=== PATIENT | male | born 1950 | race Caucasian/White ===

== ENCOUNTER 2019-05-27 19:01 | Inpatient (IN) | payer OTHER ==
[~2019-05-27] VITALS: Ht 162.6 cm; Wt 57.1 kg
[~2019-05-27 19:01] MED LIST: AMLO-147 PO; CARV25TA79 PO; CYCL10TA7 PO; HYDR-4011 PO; LEVO125T7 PO; OMEP20CA16 PO; SVL800C PO
[2019-05-27 21:16] VITALS: Ht 162.6 cm; Wt 57.1 kg
[2019-05-27 21:21] VITALS: BP 147/73; PULSE 80; RESP 20
[2019-05-27] MEDS ORDERED: ONDANSETRON 4 MG INJ IV PRN (22:30)
[2019-05-27] MEDS ORDERED: morphine 2 MG INJ IV ONE (22:30)
[2019-05-27] MEDS ORDERED: ALBUTEROL/IPRATROPIUM (NEB) 3 ML AMP HHN PRN (22:30)
[2019-05-27] MEDS ORDERED: ACETAMINOPHEN 325 MG TAB PO PRN (22:30)
[2019-05-27] MEDS ORDERED: HYDROCODONE/APAP (5/325) TAB PO PRN ×2 (22:30)
[2019-05-27] MEDS ORDERED: NACL 0.9% 3 ML SYG IV SCH (22:30)
[2019-05-27] MEDS ORDERED: CYCLOBENZAPRINE 10 MG TAB PO PRN (23:00)
[2019-05-27] MEDS ORDERED: VANCOMYCIN IV PER PHARMACY XX SCH (23:00)
[2019-05-27] MEDS ORDERED: PIPER-TAZO 3.375 GM IV (PMX) 100 ML IVPB SCH (23:00)
[2019-05-27] MEDS: PIPER-TAZO 2.25 GM (PMX) 50 ML IVPB SCH (23:23)
[2019-05-28] VITALS (20 sets, daily range): BP systolic 113–151; BP diastolic 65–80; PULSE 70–84; RESP 16–22
[2019-05-28] MEDS ORDERED: PIPER-TAZO 3.375 GM IV (PMX) 100 ML IVPB SCH
[2019-05-28] MEDS ORDERED: VANCOMYCIN 1 GM 250 ML IVPB ONE
[2019-05-28] MEDS ORDERED: SODIUM CHLORIDE 0.9% 1L BAG IV PRN (01:30)
[2019-05-28] MEDS ORDERED: HEPARIN 1000 UNITS/ML 10 ML INJ CATHETER SCH (01:30)
[2019-05-28] MEDS: PIPER-TAZO 2.25 GM (PMX) 50 ML IVPB SCH ×3 (05:14→21:40)
[2019-05-28] MEDS: PANTOPRAZOLE (EC) 40 MG TAB PO SCH (05:14)
[2019-05-28] MEDS: SEVELAMER CARBONATE 800 MG TABLET PO SCH ×3 (08:45→17:55)
[2019-05-28] MEDS: AMLODIPINE 10 MG TAB PO SCH (08:46)
[2019-05-28] MEDS: HEPARIN 5,000 UNIT/1 ML VIAL SC SCH ×2 (08:52→21:53)
[2019-05-28] MEDS ORDERED: NON-FORMULARY/PATIENT OWN MED (Omeprazole* 20 MG) PO SCH (09:00)
[2019-05-28] MEDS: METHOCARBAMOL 500 MG TAB PO SCH ×2 (14:07→21:39)
[2019-05-28] MEDS: morphine 2 MG INJ IV PRN (16:35)
[2019-05-28] MEDS: GABAPENTIN 100 MG CAP PO SCH (21:39)
[2019-05-28] MEDS: OXYCODONE/ACETAMINOPHEN (10/325) TAB PO PRN (21:40)
[2019-05-29] VITALS (7 sets, daily range): BP systolic 117–137; BP diastolic 58–70; PULSE 66–83; RESP 19–20
[2019-05-29] MEDS: OXYCODONE/ACETAMINOPHEN (10/325) TAB PO PRN ×3 (06:32→22:09)
[2019-05-29] MEDS: PANTOPRAZOLE (EC) 40 MG TAB PO SCH (06:32)
[2019-05-29] MEDS: PIPER-TAZO 2.25 GM (PMX) 50 ML IVPB SCH ×2 (06:32→13:03)
[2019-05-29] MEDS: GABAPENTIN 100 MG CAP PO SCH ×2 (08:46→20:42)
[2019-05-29] MEDS: SEVELAMER CARBONATE 800 MG TABLET PO SCH ×3 (08:46→17:12)
[2019-05-29] MEDS: METHOCARBAMOL 500 MG TAB PO SCH (08:46)
[2019-05-29] MEDS: AMLODIPINE 10 MG TAB PO SCH (08:47)
[2019-05-29] MEDS: HEPARIN 5,000 UNIT/1 ML VIAL SC SCH ×2 (08:54→20:44)
[2019-05-29] MEDS: POLYETHYLENE GLYCOL 17 GM PACKET PO SCH (13:30)
[2019-05-29] MEDS ORDERED: CEFTRIAXONE 1 GM/50 ML (PMX) 50 ML IVPB SCH (16:00)
[2019-05-29] MEDS: morphine 2 MG INJ IV PRN (19:35)
[2019-05-29] MEDS: DOCUSATE SODIUM 100 MG CAP PO SCH (20:42)
[2019-05-30] VITALS (20 sets, daily range): BP systolic 122–152; BP diastolic 67–80; PULSE 74–82; RESP 16–20
[2019-05-30] MEDS: PANTOPRAZOLE (EC) 40 MG TAB PO SCH (06:05)
[2019-05-30] MEDS: morphine 2 MG INJ IV PRN ×3 (06:19→23:55)
[2019-05-30] MEDS: SEVELAMER CARBONATE 800 MG TABLET PO SCH ×3 (07:55→17:36)
[2019-05-30] MEDS: GABAPENTIN 100 MG CAP PO SCH ×2 (08:14→20:49)
[2019-05-30] MEDS: DOCUSATE SODIUM 100 MG CAP PO SCH ×2 (08:14→20:49)
[2019-05-30] MEDS: POLYETHYLENE GLYCOL 17 GM PACKET PO SCH (08:17)
[2019-05-30] MEDS: AMLODIPINE 10 MG TAB PO SCH (08:21)
[2019-05-30] MEDS: HEPARIN 5,000 UNIT/1 ML VIAL SC SCH ×2 (08:21→20:59)
[2019-05-30] MEDS ORDERED: VANCOMYCIN 1 GM 250 ML IVPB SCH (10:00)
[2019-05-30] MEDS: LIDOCAINE 1% (MDV) 20 ML INJ INJ PRN (10:12)
[2019-05-30] MEDS: OXYCODONE/ACETAMINOPHEN (10/325) TAB PO PRN (13:47)
[2019-05-30] MEDS: CEFTRIAXONE 1 GM/50 ML (PMX) 50 ML IVPB SCH ×2 (13:50→20:49)
[2019-05-31] VITALS (28 sets, daily range): BP systolic 124–174; BP diastolic 61–88; PULSE 80–97; RESP 15–20
[2019-05-31] MEDS ORDERED: SODIUM CHLORIDE 0.9% 1L BAG IV PRN (01:30)
[2019-05-31] MEDS: PANTOPRAZOLE (EC) 40 MG TAB PO SCH (05:16)
[2019-05-31] MEDS: morphine 2 MG INJ IV PRN ×2 (06:43→10:20)
[2019-05-31] MEDS: SEVELAMER CARBONATE 800 MG TABLET PO SCH ×3 (08:00→17:43)
[2019-05-31] MEDS: DOCUSATE SODIUM 100 MG CAP PO SCH ×2 (09:00→23:01)
[2019-05-31] MEDS: GABAPENTIN 100 MG CAP PO SCH ×2 (09:00→23:01)
[2019-05-31] MEDS: HEPARIN 5,000 UNIT/1 ML VIAL SC SCH ×2 (09:00→23:02)
[2019-05-31] MEDS: AMLODIPINE 10 MG TAB PO SCH (09:00)
[2019-05-31] MEDS: CEFTRIAXONE 1 GM/50 ML (PMX) 50 ML IVPB SCH ×2 (09:20→23:03)
[2019-05-31] MEDS ORDERED: IODIXANOL LOCM 100 ML BTL ONE (09:55)
[2019-05-31] MEDS ORDERED: SOD CHLORIDE 0.9% 100 ML ONE (09:55)
[2019-05-31] MEDS ORDERED: OXYCODONE/ACETAMINOPHEN (5/325) TAB PO PRN ×2 (14:00)
[2019-05-31] MEDS ORDERED: ONDANSETRON 4 MG INJ IV PRN (14:00)
[2019-05-31] MEDS ORDERED: HYDROmorphONE 1 MG/5 ML IV SYRINGE IV PRN ×3 (14:00)
[2019-05-31] MEDS ORDERED: PROPOFOL 20 ML ONE (14:12)
[2019-05-31] MEDS ORDERED: FENTAnyl 50 MCG/ML VIAL ONE (14:12)
[2019-05-31] MEDS ORDERED: LIDOCAINE 1% (MDV) 20 ML INJ ONE (14:26)
[2019-05-31] MEDS: POLYETHYLENE GLYCOL 17 GM PACKET PO SCH (17:40)
[2019-05-31] MEDS: SOD FERRIC GLUC COMPLX 125 MG in SOD CHLORIDE 0.9% 100 ML IVPB SCH (17:40)
[2019-05-31] MEDS: morphine 4 MG/ML VIAL IV PRN ×2 (17:56→23:03)
[2019-05-31] MEDS: LIDOCAINE 1% (MDV) 20 ML INJ INJ PRN (20:09)
[2019-06-01] VITALS (18 sets, daily range): BP systolic 121–162; BP diastolic 66–83; PULSE 74–90; RESP 16–18
[2019-06-01] MEDS: morphine 4 MG/ML VIAL IV PRN ×4 (03:27→22:13)
[2019-06-01] MEDS: PANTOPRAZOLE (EC) 40 MG TAB PO SCH (06:00)
[2019-06-01] MEDS: SEVELAMER CARBONATE 800 MG TABLET PO SCH ×4 (08:00→18:00)
[2019-06-01] MEDS: HEPARIN 5,000 UNIT/1 ML VIAL SC SCH ×2 (08:04→22:06)
[2019-06-01] MEDS: DOCUSATE SODIUM 100 MG CAP PO SCH ×2 (08:37→22:02)
[2019-06-01] MEDS: GABAPENTIN 100 MG CAP PO SCH ×2 (08:37→22:03)
[2019-06-01] MEDS: POLYETHYLENE GLYCOL 17 GM PACKET PO SCH (08:37)
[2019-06-01] MEDS: CEFTRIAXONE 1 GM/50 ML (PMX) 50 ML IVPB SCH ×2 (08:38→22:03)
[2019-06-01] MEDS: AMLODIPINE 10 MG TAB PO SCH (08:38)
[2019-06-01] MEDS: HYDROCODONE/APAP (7.5/325) TAB PO PRN (08:51)
[2019-06-01] MEDS: SOD FERRIC GLUC COMPLX 125 MG in SOD CHLORIDE 0.9% 100 ML IVPB SCH (12:49)
[2019-06-01] MEDS ORDERED: SOD FERRIC GLUC COMPLX 125 MG in SOD CHLORIDE 0.9% 100 ML IVPB SCH (13:00)
[2019-06-01] MEDS ORDERED: LIDOCAINE 1% (MPF) 5 ML VIAL ONE (14:13)
[2019-06-01] MEDS: LIDOCAINE 1% (MDV) 20 ML INJ INJ PRN (17:23)
[2019-06-02 01:37] VITALS: BP 140/63; PULSE 78; RESP 18
[2019-06-02] MEDS: morphine 4 MG/ML VIAL IV PRN ×3 (04:46→20:18)
[2019-06-02] MEDS: PANTOPRAZOLE (EC) 40 MG TAB PO SCH (05:44)
[2019-06-02 08:03] VITALS: BP 174/81; PULSE 80; RESP 18
[2019-06-02] MEDS: CEFTRIAXONE 1 GM/50 ML (PMX) 50 ML IVPB SCH ×2 (08:25→20:17)
[2019-06-02] MEDS: HYDROCODONE/APAP (7.5/325) TAB PO PRN (08:25)
[2019-06-02] MEDS: SEVELAMER CARBONATE 800 MG TABLET PO SCH ×3 (08:26→17:52)
[2019-06-02] MEDS: GABAPENTIN 100 MG CAP PO SCH (08:28)
[2019-06-02] MEDS: AMLODIPINE 10 MG TAB PO SCH (08:28)
[2019-06-02] MEDS: DOCUSATE SODIUM 100 MG CAP PO SCH ×2 (08:28→20:17)
[2019-06-02] MEDS: POLYETHYLENE GLYCOL 17 GM PACKET PO SCH (08:29)
[2019-06-02] MEDS: HEPARIN 5,000 UNIT/1 ML VIAL SC SCH ×2 (08:45→20:28)
[2019-06-02] MEDS ORDERED: VANCOMYCIN 1 GM 250 ML IVPB SCH (10:30)
[2019-06-02] MEDS: SOD FERRIC GLUC COMPLX 125 MG in SOD CHLORIDE 0.9% 100 ML IVPB SCH (14:30)
[2019-06-02 14:33] VITALS: BP 156/73; PULSE 80; RESP 16
[2019-06-02] MEDS: DICLOFENAC SODIUM 1% GEL 100 GM TUBE TP SCH ×2 (17:00→20:18)
[2019-06-02 19:44] VITALS: BP 160/76; PULSE 84; RESP 17
[2019-06-02] MEDS: PREGABALIN 75 MG CAP PO SCH (20:17)
[2019-06-03] VITALS (19 sets, daily range): BP systolic 144–199; BP diastolic 74–102; PULSE 77–96; RESP 15–18
[2019-06-03] MEDS: PANTOPRAZOLE (EC) 40 MG TAB PO SCH (05:56)
[2019-06-03] MEDS: morphine 4 MG/ML VIAL IV PRN ×3 (06:50→21:55)
[2019-06-03] MEDS: PREGABALIN 75 MG CAP PO SCH ×2 (08:46→21:22)
[2019-06-03] MEDS: SEVELAMER CARBONATE 800 MG TABLET PO SCH ×3 (08:47→18:00)
[2019-06-03] MEDS: HYDROCODONE/APAP (7.5/325) TAB PO PRN ×2 (08:47→19:11)
[2019-06-03] MEDS: POLYETHYLENE GLYCOL 17 GM PACKET PO SCH (08:47)
[2019-06-03] MEDS: DOCUSATE SODIUM 100 MG CAP PO SCH ×2 (08:47→21:22)
[2019-06-03] MEDS: CEFTRIAXONE 1 GM/50 ML (PMX) 50 ML IVPB SCH ×2 (08:48→21:20)
[2019-06-03] MEDS: HEPARIN 5,000 UNIT/1 ML VIAL SC SCH ×2 (08:50→21:34)
[2019-06-03] MEDS: AMLODIPINE 10 MG TAB PO SCH ×2 (09:00→15:36)
[2019-06-03] MEDS: DICLOFENAC SODIUM 1% GEL 100 GM TUBE TP SCH ×4 (13:00→21:23)
[2019-06-03] MEDS: SOD FERRIC GLUC COMPLX 125 MG in SOD CHLORIDE 0.9% 100 ML IVPB SCH (15:35)
[2019-06-03] MEDS: CELECOXIB 100 MG CAP PO SCH (21:22)
[2019-06-03] MEDS: LOSARTAN 25 MG TAB PO SCH (21:22)
[2019-06-04 02:00] VITALS: BP 146/67; PULSE 81; RESP 17
[2019-06-04] MEDS: PANTOPRAZOLE (EC) 40 MG TAB PO SCH (06:30)
[2019-06-04 07:31] VITALS: BP 137/73; PULSE 74; RESP 18
[2019-06-04] MEDS: SEVELAMER CARBONATE 800 MG TABLET PO SCH ×3 (08:51→18:00)
[2019-06-04] MEDS: DOCUSATE SODIUM 100 MG CAP PO SCH ×2 (08:52→21:44)
[2019-06-04] MEDS: CELECOXIB 100 MG CAP PO SCH ×2 (08:53→21:43)
[2019-06-04] MEDS: PREGABALIN 75 MG CAP PO SCH ×2 (08:53→21:47)
[2019-06-04] MEDS: DICLOFENAC SODIUM 1% GEL 100 GM TUBE TP SCH ×4 (08:54→23:02)
[2019-06-04] MEDS: POLYETHYLENE GLYCOL 17 GM PACKET PO SCH (08:54)
[2019-06-04] MEDS: CEFTRIAXONE 1 GM/50 ML (PMX) 50 ML IVPB SCH ×2 (08:54→20:28)
[2019-06-04] MEDS: LOSARTAN 25 MG TAB PO SCH ×2 (08:54→21:45)
[2019-06-04] MEDS: HYDROCODONE/APAP (7.5/325) TAB PO PRN ×2 (08:55→21:47)
[2019-06-04] MEDS ORDERED: AMLODIPINE 5 MG TAB PO SCH (09:00)
[2019-06-04] MEDS: HEPARIN 5,000 UNIT/1 ML VIAL SC SCH ×2 (09:03→21:51)
[2019-06-04] MEDS: SOD FERRIC GLUC COMPLX 125 MG in SOD CHLORIDE 0.9% 100 ML IVPB SCH (12:47)
[2019-06-04] MEDS ORDERED: VANCOMYCIN 1 GM 250 ML IVPB ONE (13:00)
[2019-06-04] MEDS: morphine 4 MG/ML VIAL IV PRN (14:15)
[2019-06-04 14:45] VITALS: BP 121/60; PULSE 71; RESP 17
[2019-06-04 20:48] VITALS: BP 140/67; PULSE 77; RESP 17
[2019-06-05 02:06] VITALS: BP 130/66; PULSE 71; RESP 18
[2019-06-05] MEDS: PANTOPRAZOLE (EC) 40 MG TAB PO SCH (05:38)
[2019-06-05 07:29] VITALS: BP 145/75; PULSE 71; RESP 17
[2019-06-05] MEDS: CEFTRIAXONE 1 GM/50 ML (PMX) 50 ML IVPB SCH ×2 (08:11→20:41)
[2019-06-05] MEDS: SEVELAMER CARBONATE 800 MG TABLET PO SCH ×3 (08:11→17:27)
[2019-06-05] MEDS: POLYETHYLENE GLYCOL 17 GM PACKET PO SCH (08:11)
[2019-06-05] MEDS: DOCUSATE SODIUM 100 MG CAP PO SCH ×2 (08:11→20:42)
[2019-06-05] MEDS: PREGABALIN 75 MG CAP PO SCH ×2 (08:12→20:43)
[2019-06-05] MEDS: LOSARTAN 25 MG TAB PO SCH ×2 (08:12→20:41)
[2019-06-05] MEDS: CELECOXIB 100 MG CAP PO SCH ×2 (08:12→20:41)
[2019-06-05] MEDS: AMLODIPINE 5 MG TAB PO SCH (08:13)
[2019-06-05] MEDS: DICLOFENAC SODIUM 1% GEL 100 GM TUBE TP SCH ×4 (08:14→20:43)
[2019-06-05] MEDS: HEPARIN 5,000 UNIT/1 ML VIAL SC SCH ×2 (08:15→20:45)
[2019-06-05] MEDS: HYDROCODONE/APAP (7.5/325) TAB PO PRN ×2 (08:28→15:52)
[2019-06-05] MEDS: traMADol 50 MG TAB PO SCH ×2 (12:10→20:43)
[2019-06-05] MEDS: metroNIDAZOLE 500 MG/NS (PMX) 100 ML IVPB SCH ×2 (14:37→22:04)
[2019-06-05 14:50] VITALS: BP 138/71; PULSE 74; RESP 18
[2019-06-05 21:14] VITALS: BP 159/78; PULSE 80; RESP 18
[2019-06-06] VITALS (18 sets, daily range): BP systolic 101–162; BP diastolic 60–75; PULSE 76–91; RESP 17–18
[2019-06-06] MEDS: metroNIDAZOLE 500 MG/NS (PMX) 100 ML IVPB SCH (05:31)
[2019-06-06] MEDS: PANTOPRAZOLE (EC) 40 MG TAB PO SCH (05:31)
[2019-06-06] MEDS: CELECOXIB 100 MG CAP PO SCH ×2 (08:41→21:21)
[2019-06-06] MEDS: CEFTRIAXONE 1 GM/50 ML (PMX) 50 ML IVPB SCH (08:41)
[2019-06-06] MEDS: DOCUSATE SODIUM 100 MG CAP PO SCH ×2 (08:41→21:21)
[2019-06-06] MEDS: traMADol 50 MG TAB PO SCH ×3 (08:41→21:21)
[2019-06-06] MEDS: PREGABALIN 75 MG CAP PO SCH ×2 (08:41→21:22)
[2019-06-06] MEDS: SEVELAMER CARBONATE 800 MG TABLET PO SCH ×3 (08:42→17:36)
[2019-06-06] MEDS: POLYETHYLENE GLYCOL 17 GM PACKET PO SCH (08:42)
[2019-06-06] MEDS: HEPARIN 5,000 UNIT/1 ML VIAL SC SCH (08:43)
[2019-06-06] MEDS: DICLOFENAC SODIUM 1% GEL 100 GM TUBE TP SCH ×4 (08:44→21:27)
[2019-06-06] MEDS: LOSARTAN 25 MG TAB PO SCH ×2 (08:48→21:23)
[2019-06-06] MEDS: AMLODIPINE 5 MG TAB PO SCH (08:49)
[2019-06-06] MEDS ORDERED: MEROPENEM 1 GM/50ML(PMX) 50 ML IVPB ONE (09:30)
[2019-06-06] MEDS: LIDOCAINE 1% (MDV) 20 ML INJ INJ PRN (09:44)
[2019-06-06] MEDS ORDERED: MEROPENEM 500MG/50 ML (PMX) 50 ML IVPB SCH (10:00)
[2019-06-06] MEDS: RIFAMPIN 300 MG CAP PO SCH (10:00)
[2019-06-06] MEDS ORDERED: LORAZEPAM 2 MG INJ IV SCH (13:00)
[2019-06-06] MEDS: HYDROCODONE/APAP (7.5/325) TAB PO PRN (16:00)
[2019-06-06] MEDS: morphine 4 MG/ML VIAL IV PRN (20:06)
[2019-06-06] MEDS: MEROPENEM 500MG/50 ML (PMX) 50 ML IVPB SCH (21:21)
[2019-06-07 01:20] VITALS: BP 138/65; PULSE 83; RESP 18
[2019-06-07] MEDS: PANTOPRAZOLE (EC) 40 MG TAB PO SCH (05:44)
[2019-06-07 07:48] VITALS: BP 134/64; PULSE 80; RESP 17
[2019-06-07] MEDS: PREGABALIN 75 MG CAP PO SCH ×2 (08:41→20:30)
[2019-06-07] MEDS: traMADol 50 MG TAB PO SCH ×2 (08:41→20:32)
[2019-06-07] MEDS: POLYETHYLENE GLYCOL 17 GM PACKET PO SCH (09:17)
[2019-06-07] MEDS: RIFAMPIN 300 MG CAP PO SCH (09:18)
[2019-06-07] MEDS: SEVELAMER CARBONATE 800 MG TABLET PO SCH ×3 (09:18→18:58)
[2019-06-07] MEDS: MEROPENEM 500MG/50 ML (PMX) 50 ML IVPB SCH ×2 (09:18→20:36)
[2019-06-07] MEDS: AMLODIPINE 5 MG TAB PO SCH (09:19)
[2019-06-07] MEDS: DOCUSATE SODIUM 100 MG CAP PO SCH ×2 (09:19→20:29)
[2019-06-07] MEDS: CELECOXIB 100 MG CAP PO SCH ×2 (09:19→20:43)
[2019-06-07] MEDS: LOSARTAN 25 MG TAB PO SCH ×2 (09:19→20:32)
[2019-06-07] MEDS: DICLOFENAC SODIUM 1% GEL 100 GM TUBE TP SCH ×4 (09:20→21:36)
[2019-06-07] MEDS ORDERED: SOD CHLORIDE 0.9% 250 ML IV* ONE (10:52)
[2019-06-07] MEDS: HYDROCODONE/APAP (7.5/325) TAB PO PRN ×2 (10:59→22:56)
[2019-06-07] MEDS ORDERED: VANCOMYCIN 750 MG (PMX) 250 ML IVPB SCH (14:00)
[2019-06-07 14:38] VITALS: BP 122/62; PULSE 83; RESP 16
[2019-06-07 19:27] VITALS: BP 134/65; PULSE 78; RESP 18
[2019-06-08] VITALS (20 sets, daily range): BP systolic 126–168; BP diastolic 62–84; PULSE 76–88; RESP 13–20
[2019-06-08] MEDS: PANTOPRAZOLE (EC) 40 MG TAB PO SCH (05:15)
[2019-06-08] MEDS: morphine 4 MG/ML VIAL IV PRN ×2 (05:15→09:39)
[2019-06-08] MEDS: SEVELAMER CARBONATE 800 MG TABLET PO SCH ×3 (08:00→18:00)
[2019-06-08] MEDS: LOSARTAN 25 MG TAB PO SCH ×2 (08:06→22:30)
[2019-06-08] MEDS: DOCUSATE SODIUM 100 MG CAP PO SCH ×2 (08:06→22:30)
[2019-06-08] MEDS: CELECOXIB 100 MG CAP PO SCH ×2 (08:06→22:30)
[2019-06-08] MEDS: PREGABALIN 75 MG CAP PO SCH ×2 (08:07→22:30)
[2019-06-08] MEDS: RIFAMPIN 300 MG CAP PO SCH (08:07)
[2019-06-08] MEDS: traMADol 50 MG TAB PO SCH ×2 (08:07→22:30)
[2019-06-08] MEDS: AMLODIPINE 5 MG TAB PO SCH (08:07)
[2019-06-08] MEDS: POLYETHYLENE GLYCOL 17 GM PACKET PO SCH (08:07)
[2019-06-08] MEDS: MEROPENEM 500MG/50 ML (PMX) 50 ML IVPB SCH ×2 (09:38→22:30)
[2019-06-08] MEDS: DICLOFENAC SODIUM 1% GEL 100 GM TUBE TP SCH ×4 (09:39→22:30)
[2019-06-08] MEDS ORDERED: SOD CHLORIDE 0.9% 250 ML IV* ONE (12:13)
[2019-06-08] MEDS ORDERED: POLYMYXIN/BACITRACIN 1L IRRIG ONE (14:06)
[2019-06-08] MEDS ORDERED: BUPIVACAINE 0.5%/EPI (SDV) 30 ML INJ ONE (14:06)
[2019-06-08] MEDS ORDERED: LIDOCAINE 0.5% (SDV) 50 ML INJ ONE (14:06)
[2019-06-08] MEDS ORDERED: GELATIN SIZE 100 SPONGE ONE (14:06)
[2019-06-08] MEDS ORDERED: THROMBIN 5000 UNIT (RECOTHROM) VIAL ONE (14:06)
[2019-06-08] MEDS ORDERED: PROPOFOL 20 ML ONE (14:19)
[2019-06-08] MEDS ORDERED: LIDOCAINE 2% (SDV) 5 ML INJ ONE (14:22)
[2019-06-08] MEDS ORDERED: ROCURONIUM 50 MG INJ ONE ×2 (18:32→18:33)
[2019-06-08] MEDS ORDERED: DEXAMETHASONE 4 MG/ML 5 ML INJ ONE (18:33)
[2019-06-08] MEDS ORDERED: ONDANSETRON 4 MG INJ ONE (18:34)
[2019-06-08] MEDS ORDERED: SUGAMMADEX SODIUM 200 MG/2 ML VIAL IV ONE (18:35)
[2019-06-08] MEDS ORDERED: MEPERIDINE 25 MG INJ IV PRN (19:00)
[2019-06-08] MEDS ORDERED: hydrALAzine 20 MG INJ IV PRN (19:00)
[2019-06-08] MEDS ORDERED: DIPHENHYDRAMINE 50 MG INJ IV PRN (19:00)
[2019-06-08] MEDS ORDERED: ALBUTEROL 0.083% (NEB) 2.5 MG/3 ML AMP HHN PRN (19:00)
[2019-06-08] MEDS ORDERED: HYDROCODONE/APAP (5/325) TAB PO PRN (19:00)
[2019-06-08] MEDS ORDERED: ONDANSETRON 4 MG INJ IV PRN (19:00)
[2019-06-08] MEDS ORDERED: HYDROmorphONE 1 MG/5 ML IV SYRINGE IV PRN ×3 (19:00)
[2019-06-08] MEDS ORDERED: LORAZEPAM 2 MG INJ IV PRN (19:00)
[2019-06-08] MEDS ORDERED: METOCLOPRAMIDE 10 MG INJ IV PRN (19:00)
[2019-06-08] MEDS ORDERED: LABETALOL HCL 20MG INJ IV PRN (19:00)
[2019-06-08] MEDS ORDERED: MIDAZOLAM 1 MG/ML 2 ML INJ IV PRN (19:00)
[2019-06-08] MEDS ORDERED: EPHEDrine 25 MG/5 ML SYG IV PRN (19:00)
[2019-06-09] VITALS (17 sets, daily range): BP systolic 90–157; BP diastolic 50–78; PULSE 74–85; RESP 18–20
[2019-06-09] MEDS: HYDROCODONE/APAP (7.5/325) TAB PO PRN (00:51)
[2019-06-09] MEDS: LIDOCAINE 1% (MDV) 20 ML INJ INJ PRN (00:55)
[2019-06-09] MEDS: ALBUMIN HUMAN 25% 100 ML IV PRN (02:07)
[2019-06-09] MEDS: PANTOPRAZOLE (EC) 40 MG TAB PO SCH (05:10)
[2019-06-09] MEDS: MEROPENEM 500MG/50 ML (PMX) 50 ML IVPB SCH ×2 (05:11→20:52)
[2019-06-09] MEDS: morphine 4 MG/ML VIAL IV PRN ×2 (06:03→11:53)
[2019-06-09] MEDS: DICLOFENAC SODIUM 1% GEL 100 GM TUBE TP SCH ×4 (09:00→21:00)
[2019-06-09] MEDS: CELECOXIB 100 MG CAP PO SCH ×2 (09:16→20:51)
[2019-06-09] MEDS: DOCUSATE SODIUM 100 MG CAP PO SCH ×2 (09:17→21:00)
[2019-06-09] MEDS: SEVELAMER CARBONATE 800 MG TABLET PO SCH ×3 (09:18→18:00)
[2019-06-09] MEDS: POLYETHYLENE GLYCOL 17 GM PACKET PO SCH (09:18)
[2019-06-09] MEDS: PREGABALIN 75 MG CAP PO SCH ×2 (09:19→20:51)
[2019-06-09] MEDS: RIFAMPIN 300 MG CAP PO SCH (09:19)
[2019-06-09] MEDS: traMADol 50 MG TAB PO SCH (09:19)
[2019-06-09] MEDS: AMLODIPINE 5 MG TAB PO SCH ×2 (09:23→20:53)
[2019-06-09] MEDS: LOSARTAN 25 MG TAB PO SCH ×2 (09:24→20:53)
[2019-06-09] MEDS ORDERED: HYDROmorphONE 2 MG/ML SYG IV PRN (12:30)
[2019-06-09] MEDS ORDERED: IBUPROFEN 800 MG TAB PO SCH (15:00)
[2019-06-09] MEDS ORDERED: HYDROmorphONE 0.2 MG/ML PCA IV SCH (15:30)
[2019-06-09] MEDS ORDERED: NALOXONE (0.4 MG/ML) INJ IV PRN (15:30)
[2019-06-09] MEDS: HYDROCODONE/APAP (5/325) TAB PO SCH ×2 (18:38→22:39)
[2019-06-09] MEDS: CYCLOBENZAPRINE HCL 5 MG TABLET PO SCH (21:58)
[2019-06-10] VITALS (18 sets, daily range): BP systolic 117–155; BP diastolic 61–84; PULSE 70–79; RESP 16–20
[2019-06-10] MEDS: HYDROCODONE/APAP (5/325) TAB PO SCH ×7 (02:42→20:38)
[2019-06-10] MEDS: PANTOPRAZOLE (EC) 40 MG TAB PO SCH (06:48)
[2019-06-10] MEDS: MEROPENEM 500MG/50 ML (PMX) 50 ML IVPB SCH ×2 (09:17→23:27)
[2019-06-10] MEDS: POLYETHYLENE GLYCOL 17 GM PACKET PO SCH (09:18)
[2019-06-10] MEDS: RIFAMPIN 300 MG CAP PO SCH (09:19)
[2019-06-10] MEDS: PREGABALIN 75 MG CAP PO SCH ×2 (09:19→20:38)
[2019-06-10] MEDS: AMLODIPINE 5 MG TAB PO SCH ×2 (09:20→20:38)
[2019-06-10] MEDS: CELECOXIB 100 MG CAP PO SCH ×2 (09:20→20:38)
[2019-06-10] MEDS: LOSARTAN 25 MG TAB PO SCH ×2 (09:20→20:37)
[2019-06-10] MEDS: DOCUSATE SODIUM 100 MG CAP PO SCH ×2 (09:20→20:37)
[2019-06-10] MEDS: CYCLOBENZAPRINE HCL 5 MG TABLET PO SCH ×3 (09:20→20:38)
[2019-06-10] MEDS: DICLOFENAC SODIUM 1% GEL 100 GM TUBE TP SCH ×4 (09:21→20:44)
[2019-06-10] MEDS: SEVELAMER CARBONATE 800 MG TABLET PO SCH ×3 (09:25→19:17)
[2019-06-10] MEDS ORDERED: HYDROCODONE/APAP (5/325) TAB PO SCH (11:00)
[2019-06-10] MEDS: LIDOCAINE 1% (MDV) 20 ML INJ INJ PRN (16:43)
[2019-06-10] MEDS: VANCOMYCIN 750 MG (PMX) 250 ML IVPB SCH (21:24)
[2019-06-11] MEDS: HYDROCODONE/APAP (5/325) TAB PO SCH ×7 (01:32→23:05)
[2019-06-11 01:45] VITALS: BP 164/79; PULSE 77; RESP 19
[2019-06-11] MEDS: PANTOPRAZOLE (EC) 40 MG TAB PO SCH (06:03)
[2019-06-11 07:48] VITALS: BP 161/73; PULSE 69; RESP 20
[2019-06-11] MEDS: CELECOXIB 100 MG CAP PO SCH ×2 (08:31→20:41)
[2019-06-11] MEDS: MEROPENEM 500MG/50 ML (PMX) 50 ML IVPB SCH ×2 (08:31→20:39)
[2019-06-11] MEDS: CYCLOBENZAPRINE HCL 5 MG TABLET PO SCH ×3 (08:32→20:40)
[2019-06-11] MEDS: RIFAMPIN 300 MG CAP PO SCH (08:32)
[2019-06-11] MEDS: PREGABALIN 75 MG CAP PO SCH ×2 (08:32→20:40)
[2019-06-11] MEDS: DOCUSATE SODIUM 100 MG CAP PO SCH ×2 (08:32→20:40)
[2019-06-11] MEDS: AMLODIPINE 5 MG TAB PO SCH ×2 (08:32→20:41)
[2019-06-11] MEDS: LOSARTAN 25 MG TAB PO SCH ×2 (08:32→20:40)
[2019-06-11] MEDS: POLYETHYLENE GLYCOL 17 GM PACKET PO SCH (08:33)
[2019-06-11] MEDS: DICLOFENAC SODIUM 1% GEL 100 GM TUBE TP SCH ×4 (08:33→20:42)
[2019-06-11] MEDS: SEVELAMER CARBONATE 800 MG TABLET PO SCH ×3 (12:00→17:38)
[2019-06-11 13:14] VITALS: BP 165/76; PULSE 72; RESP 20
[2019-06-11] MEDS: morphine 2 MG INJ IV PRN (13:38)
[2019-06-11 19:45] VITALS: BP 138/69; PULSE 78; RESP 18
[2019-06-12 01:11] VITALS: BP 155/81; PULSE 78; RESP 18
[2019-06-12] MEDS: HYDROCODONE/APAP (5/325) TAB PO SCH ×2 (03:50→08:50)
[2019-06-12] MEDS: PANTOPRAZOLE (EC) 40 MG TAB PO SCH (05:43)
[2019-06-12 07:57] VITALS: BP 143/82; PULSE 66; RESP 20
[2019-06-12] MEDS ORDERED: LIDOCAINE 1% (MPF) 5 ML VIAL SC ONE (08:00)
[2019-06-12] MEDS: SEVELAMER CARBONATE 800 MG TABLET PO SCH ×3 (08:50→17:53)
[2019-06-12] MEDS: PREGABALIN 75 MG CAP PO SCH ×2 (08:51→20:09)
[2019-06-12] MEDS: RIFAMPIN 300 MG CAP PO SCH (08:51)
[2019-06-12] MEDS: MEROPENEM 500MG/50 ML (PMX) 50 ML IVPB SCH (08:51)
[2019-06-12] MEDS: CYCLOBENZAPRINE HCL 5 MG TABLET PO SCH ×3 (08:52→20:10)
[2019-06-12] MEDS: CELECOXIB 100 MG CAP PO SCH ×2 (08:52→20:09)
[2019-06-12] MEDS: DOCUSATE SODIUM 100 MG CAP PO SCH ×2 (08:52→20:09)
[2019-06-12] MEDS: LOSARTAN 25 MG TAB PO SCH ×2 (08:53→20:08)
[2019-06-12] MEDS: AMLODIPINE 5 MG TAB PO SCH ×2 (08:54→20:08)
[2019-06-12] MEDS: POLYETHYLENE GLYCOL 17 GM PACKET PO SCH (08:55)
[2019-06-12] MEDS: DICLOFENAC SODIUM 1% GEL 100 GM TUBE TP SCH ×4 (09:00→20:10)
[2019-06-12] MEDS ORDERED: OXYCODONE/ACETAMINOPHEN (5/325) TAB PO PRN (11:00)
[2019-06-12] MEDS: oxyCODONE (CR) 10 MG TAB [oxyCONTIN] PO SCH ×2 (11:45→20:10)
[2019-06-12] MEDS: morphine 2 MG INJ IV PRN (14:06)
[2019-06-12 15:19] VITALS: BP 134/71; PULSE 72; RESP 20
[2019-06-12 19:25] VITALS: BP 189/80; PULSE 73; RESP 17
[2019-06-12] MEDS: ERTAPENEM SODIUM 0.5 GM in SOD CHLORIDE 0.9% 100 ML IVPB SCH (20:04)
[2019-06-12 21:33] VITALS: BP 192/85; PULSE 76
[2019-06-13] VITALS (19 sets, daily range): BP systolic 93–187; BP diastolic 56–86; PULSE 73–86; RESP 16–20
[2019-06-13] MEDS: hydrALAzine 20 MG INJ IV PRN ×2 (01:17→14:48)
[2019-06-13] MEDS: PANTOPRAZOLE (EC) 40 MG TAB PO SCH (05:24)
[2019-06-13] MEDS: POLYETHYLENE GLYCOL 17 GM PACKET PO SCH (08:33)
[2019-06-13] MEDS: CYCLOBENZAPRINE HCL 5 MG TABLET PO SCH ×3 (08:33→23:45)
[2019-06-13] MEDS: RIFAMPIN 300 MG CAP PO SCH (08:33)
[2019-06-13] MEDS: SEVELAMER CARBONATE 800 MG TABLET PO SCH ×3 (08:33→18:18)
[2019-06-13] MEDS: CELECOXIB 100 MG CAP PO SCH ×2 (08:33→23:45)
[2019-06-13] MEDS: DOCUSATE SODIUM 100 MG CAP PO SCH ×2 (08:33→23:45)
[2019-06-13] MEDS: oxyCODONE (CR) 10 MG TAB [oxyCONTIN] PO SCH ×2 (08:34→23:45)
[2019-06-13] MEDS: AMLODIPINE 5 MG TAB PO SCH ×2 (08:34→23:49)
[2019-06-13] MEDS: PREGABALIN 75 MG CAP PO SCH ×2 (08:34→23:46)
[2019-06-13] MEDS: LOSARTAN 25 MG TAB PO SCH ×2 (08:35→23:49)
[2019-06-13] MEDS: DICLOFENAC SODIUM 1% GEL 100 GM TUBE TP SCH ×3 (08:35→17:00)
[2019-06-13] MEDS ORDERED: OXYCODONE/ACETAMINOPHEN (5/325) TAB PO PRN (14:30)
[2019-06-13] MEDS: VANCOMYCIN 750 MG (PMX) 250 ML IVPB SCH (18:18)
[2019-06-13] MEDS: LIDOCAINE 1% (MDV) 20 ML INJ INJ PRN (19:54)
[2019-06-14] MEDS: DICLOFENAC SODIUM 1% GEL 100 GM TUBE TP SCH ×5 (00:28→21:09)
[2019-06-14] MEDS: ERTAPENEM SODIUM 0.5 GM in SOD CHLORIDE 0.9% 100 ML IVPB SCH ×2 (00:28→21:17)
[2019-06-14 01:37] VITALS: BP 147/70; PULSE 80; RESP 20
[2019-06-14] MEDS: morphine 2 MG INJ IV PRN (03:18)
[2019-06-14] MEDS: PANTOPRAZOLE (EC) 40 MG TAB PO SCH (06:28)
[2019-06-14 08:10] VITALS: BP 177/74; PULSE 73; RESP 17
[2019-06-14] MEDS: SEVELAMER CARBONATE 800 MG TABLET PO SCH ×3 (08:30→17:50)
[2019-06-14] MEDS: CYCLOBENZAPRINE HCL 5 MG TABLET PO SCH ×3 (08:31→21:10)
[2019-06-14] MEDS: DOCUSATE SODIUM 100 MG CAP PO SCH ×2 (08:31→21:10)
[2019-06-14] MEDS: CELECOXIB 100 MG CAP PO SCH ×2 (08:31→21:12)
[2019-06-14] MEDS: oxyCODONE (CR) 10 MG TAB [oxyCONTIN] PO SCH ×2 (08:32→21:11)
[2019-06-14] MEDS: POLYETHYLENE GLYCOL 17 GM PACKET PO SCH (08:32)
[2019-06-14] MEDS: PREGABALIN 75 MG CAP PO SCH ×2 (08:32→21:10)
[2019-06-14] MEDS: LOSARTAN 25 MG TAB PO SCH ×2 (08:32→21:11)
[2019-06-14] MEDS: AMLODIPINE 5 MG TAB PO SCH ×2 (08:32→21:12)
[2019-06-14 10:18] VITALS: BP 157/74; PULSE 72; RESP 16
[2019-06-14 14:07] VITALS: BP 182/81; PULSE 82; RESP 17
[2019-06-14] MEDS: hydrALAzine 20 MG INJ IV PRN (14:17)
[2019-06-14 19:56] VITALS: BP 163/79; PULSE 81; RESP 18
[2019-06-14 22:00] VITALS: BP 157/73; PULSE 82; RESP 19
[2019-06-15] VITALS (19 sets, daily range): BP systolic 131–188; BP diastolic 51–86; PULSE 77–86; RESP 16–20
[2019-06-15] MEDS: PANTOPRAZOLE (EC) 40 MG TAB PO SCH (05:38)
[2019-06-15] MEDS: SEVELAMER CARBONATE 800 MG TABLET PO SCH ×4 (08:00→17:15)
[2019-06-15] MEDS: LOSARTAN 25 MG TAB PO SCH ×2 (09:00→20:07)
[2019-06-15] MEDS: POLYETHYLENE GLYCOL 17 GM PACKET PO SCH ×2 (09:00→09:41)
[2019-06-15] MEDS: AMLODIPINE 5 MG TAB PO SCH ×2 (09:00→20:08)
[2019-06-15] MEDS: CYCLOBENZAPRINE HCL 5 MG TABLET PO SCH ×3 (09:39→20:08)
[2019-06-15] MEDS: CELECOXIB 100 MG CAP PO SCH ×2 (09:39→20:06)
[2019-06-15] MEDS: PREGABALIN 75 MG CAP PO SCH ×2 (09:39→20:08)
[2019-06-15] MEDS: oxyCODONE (CR) 10 MG TAB [oxyCONTIN] PO SCH ×2 (09:40→20:08)
[2019-06-15] MEDS: DOCUSATE SODIUM 100 MG CAP PO SCH ×2 (09:41→20:07)
[2019-06-15] MEDS: DICLOFENAC SODIUM 1% GEL 100 GM TUBE TP SCH ×4 (09:41→22:10)
[2019-06-15] MEDS: LIDOCAINE 1% (MDV) 20 ML INJ INJ PRN (11:26)
[2019-06-15] MEDS: ASPIRIN (EC) 325 MG TAB PO SCH (15:52)
[2019-06-15] MEDS: hydrALAzine 20 MG INJ IV PRN (17:15)
[2019-06-15] MEDS: ERTAPENEM SODIUM 0.5 GM in SOD CHLORIDE 0.9% 100 ML IVPB SCH (22:10)
[2019-06-16] VITALS (7 sets, daily range): BP systolic 134–181; BP diastolic 70–86; PULSE 78–88; RESP 18–20
[2019-06-16] MEDS: PANTOPRAZOLE (EC) 40 MG TAB PO SCH (05:36)
[2019-06-16] MEDS: hydrALAzine 20 MG INJ IV PRN (05:46)
[2019-06-16] MEDS: SEVELAMER CARBONATE 800 MG TABLET PO SCH ×3 (08:00→17:08)
[2019-06-16] MEDS: LOSARTAN 25 MG TAB PO SCH ×2 (08:43→20:22)
[2019-06-16] MEDS: AMLODIPINE 5 MG TAB PO SCH ×2 (08:43→20:20)
[2019-06-16] MEDS: DICLOFENAC SODIUM 1% GEL 100 GM TUBE TP SCH ×4 (08:44→21:23)
[2019-06-16] MEDS: oxyCODONE (CR) 10 MG TAB [oxyCONTIN] PO SCH (08:44)
[2019-06-16] MEDS: POLYETHYLENE GLYCOL 17 GM PACKET PO SCH (08:44)
[2019-06-16] MEDS: PREGABALIN 75 MG CAP PO SCH ×2 (08:45→20:21)
[2019-06-16] MEDS: DOCUSATE SODIUM 100 MG CAP PO SCH ×2 (08:51→20:21)
[2019-06-16] MEDS: CELECOXIB 100 MG CAP PO SCH ×2 (08:51→20:20)
[2019-06-16] MEDS: CYCLOBENZAPRINE HCL 5 MG TABLET PO SCH (08:51)
[2019-06-16] MEDS: ASPIRIN (EC) 325 MG TAB PO SCH (08:51)
[2019-06-16] MEDS ORDERED: HALOPERIDOL 5 MG INJ IM ONE (12:30)
[2019-06-16] MEDS: VANCOMYCIN 750 MG (PMX) 250 ML IVPB SCH (18:32)
[2019-06-16] MEDS: ERTAPENEM SODIUM 0.5 GM in SOD CHLORIDE 0.9% 100 ML IVPB SCH (21:23)
[2019-06-16] MEDS: HEPARIN 5,000 UNIT/1 ML VIAL SC SCH (21:38)
[2019-06-17] VITALS (21 sets, daily range): BP systolic 105–212; BP diastolic 49–96; PULSE 67–90; RESP 18–20
[2019-06-17] MEDS: PANTOPRAZOLE (EC) 40 MG TAB PO SCH (05:55)
[2019-06-17] MEDS: CELECOXIB 100 MG CAP PO SCH ×2 (08:12→21:29)
[2019-06-17] MEDS: SEVELAMER CARBONATE 800 MG TABLET PO SCH ×3 (08:12→18:17)
[2019-06-17] MEDS: DOCUSATE SODIUM 100 MG CAP PO SCH ×2 (08:12→21:29)
[2019-06-17] MEDS: PREGABALIN 75 MG CAP PO SCH ×2 (08:12→21:38)
[2019-06-17] MEDS: POLYETHYLENE GLYCOL 17 GM PACKET PO SCH (08:13)
[2019-06-17] MEDS: HEPARIN 5,000 UNIT/1 ML VIAL SC SCH ×2 (08:23→21:32)
[2019-06-17] MEDS: DICLOFENAC SODIUM 1% GEL 100 GM TUBE TP SCH ×4 (08:28→21:39)
[2019-06-17] MEDS: LOSARTAN 25 MG TAB PO SCH ×3 (09:00→21:30)
[2019-06-17] MEDS: ASPIRIN (EC) 81 MG TAB PO SCH (09:00)
[2019-06-17] MEDS: DOXAZOSIN 1 MG TAB PO ONE (10:00)
[2019-06-17] MEDS ORDERED: LORAZEPAM 2 MG INJ IV ONE ×2 (10:00→23:17)
[2019-06-17] MEDS: CEFEPIME 1GM/50 ML (PMX) 50 ML IVPB SCH (11:13)
[2019-06-17] MEDS: hydrALAzine 20 MG INJ IV PRN (11:21)
[2019-06-17] MEDS: LIDOCAINE 1% (MDV) 20 ML INJ INJ PRN (14:36)
[2019-06-17] MEDS ORDERED: DOXAZOSIN 2 MG TAB PO SCH (21:00)
[2019-06-18] VITALS (9 sets, daily range): BP systolic 120–184; BP diastolic 56–84; PULSE 77–88; RESP 17–20
[2019-06-18] MEDS: PANTOPRAZOLE (EC) 40 MG TAB PO SCH (06:05)
[2019-06-18] MEDS: SEVELAMER CARBONATE 800 MG TABLET PO SCH ×4 (08:00→17:09)
[2019-06-18] MEDS: CEFEPIME 1GM/50 ML (PMX) 50 ML IVPB SCH (08:58)
[2019-06-18] MEDS: HEPARIN 5,000 UNIT/1 ML VIAL SC SCH ×2 (08:59→21:32)
[2019-06-18] MEDS: DOCUSATE SODIUM 100 MG CAP PO SCH ×3 (08:59→21:28)
[2019-06-18] MEDS: LOSARTAN 25 MG TAB PO SCH ×2 (09:00→21:29)
[2019-06-18] MEDS: ASPIRIN (EC) 81 MG TAB PO SCH ×2 (09:00→09:01)
[2019-06-18] MEDS: CELECOXIB 100 MG CAP PO SCH ×3 (09:00→21:28)
[2019-06-18] MEDS: POLYETHYLENE GLYCOL 17 GM PACKET PO SCH (09:00)
[2019-06-18] MEDS: PREGABALIN 75 MG CAP PO SCH ×2 (09:00→21:34)
[2019-06-18] MEDS: AMLODIPINE 5 MG TAB PO SCH ×2 (09:00→09:01)
[2019-06-18] MEDS: DICLOFENAC SODIUM 1% GEL 100 GM TUBE TP SCH ×4 (09:03→21:34)
[2019-06-18] MEDS: hydrALAzine 20 MG INJ IV PRN (16:04)
[2019-06-18] MEDS: DOXAZOSIN 2 MG TAB PO SCH (21:30)
[2019-06-19 04:00] VITALS: BP 155/69; PULSE 82; RESP 21
[2019-06-19] MEDS: PANTOPRAZOLE (EC) 40 MG TAB PO SCH (05:40)
[2019-06-19 07:10] VITALS: BP 181/84; PULSE 95; RESP 20
[2019-06-19] MEDS ORDERED: AMLODIPINE 2.5 MG TAB PO SCH (09:00)
[2019-06-19] MEDS: CEFEPIME 1GM/50 ML (PMX) 50 ML IVPB SCH (09:19)
[2019-06-19] MEDS: SEVELAMER CARBONATE 800 MG TABLET PO SCH ×3 (09:19→17:09)
[2019-06-19] MEDS: ASPIRIN (EC) 81 MG TAB PO SCH (09:20)
[2019-06-19] MEDS: LOSARTAN 25 MG TAB PO SCH ×2 (09:20→21:08)
[2019-06-19] MEDS: DOCUSATE SODIUM 100 MG CAP PO SCH ×2 (09:20→21:08)
[2019-06-19] MEDS: CELECOXIB 100 MG CAP PO SCH ×2 (09:21→21:07)
[2019-06-19] MEDS: DICLOFENAC SODIUM 1% GEL 100 GM TUBE TP SCH ×4 (09:21→21:09)
[2019-06-19] MEDS: POLYETHYLENE GLYCOL 17 GM PACKET PO SCH (09:21)
[2019-06-19] MEDS: HYDROCODONE/APAP (5/325) TAB PO PRN ×2 (10:49→19:00)
[2019-06-19] MEDS: PREGABALIN 75 MG CAP PO SCH ×2 (10:49→21:14)
[2019-06-19] MEDS: HEPARIN 5,000 UNIT/1 ML VIAL SC SCH ×2 (10:54→21:11)
[2019-06-19 12:00] VITALS: BP 165/77; PULSE 67; RESP 20
[2019-06-19 15:35] VITALS: BP 137/69; PULSE 75; RESP 20
[2019-06-19] MEDS: VANCOMYCIN 750 MG (PMX) 250 ML IVPB SCH (17:09)
[2019-06-19 19:57] VITALS: BP 196/81; PULSE 78; RESP 18
[2019-06-19] MEDS: DOXAZOSIN 2 MG TAB PO SCH (21:07)
[2019-06-19] MEDS: AMLODIPINE 2.5 MG TAB PO SCH (21:14)
[2019-06-20] VITALS (20 sets, daily range): BP systolic 136–210; BP diastolic 70–98; PULSE 72–92; RESP 18–20
[2019-06-20] MEDS: HYDROCODONE/APAP (5/325) TAB PO PRN (04:17)
[2019-06-20] MEDS: PANTOPRAZOLE (EC) 40 MG TAB PO SCH (06:37)
[2019-06-20] MEDS: DICLOFENAC SODIUM 1% GEL 100 GM TUBE TP SCH ×4 (09:31→23:12)
[2019-06-20] MEDS: CEFEPIME 1GM/50 ML (PMX) 50 ML IVPB SCH (09:32)
[2019-06-20] MEDS: DOCUSATE SODIUM 100 MG CAP PO SCH ×2 (09:32→20:31)
[2019-06-20] MEDS: CELECOXIB 100 MG CAP PO SCH ×2 (09:32→20:31)
[2019-06-20] MEDS: ASPIRIN (EC) 81 MG TAB PO SCH (09:32)
[2019-06-20] MEDS: AMLODIPINE 2.5 MG TAB PO SCH (09:32)
[2019-06-20] MEDS: LOSARTAN 25 MG TAB PO SCH ×2 (09:33→20:37)
[2019-06-20] MEDS: POLYETHYLENE GLYCOL 17 GM PACKET PO SCH (09:34)
[2019-06-20] MEDS: SEVELAMER CARBONATE 800 MG TABLET PO SCH ×3 (09:34→17:54)
[2019-06-20] MEDS: PREGABALIN 75 MG CAP PO SCH ×2 (09:37→20:45)
[2019-06-20] MEDS: HEPARIN 5,000 UNIT/1 ML VIAL SC SCH ×2 (09:56→20:57)
[2019-06-20] MEDS: FLUCONAZOLE 100 MG TAB PO SCH (17:54)
[2019-06-20] MEDS: DAPTOMYCIN 230 MG in SOD CHLORIDE 0.9% 100 ML IVPB SCH (18:13)
[2019-06-20] MEDS: AMLODIPINE 5 MG TAB PO SCH (20:31)
[2019-06-20] MEDS: DOXAZOSIN 2 MG TAB PO SCH (20:31)
[2019-06-21] VITALS (8 sets, daily range): BP systolic 121–193; BP diastolic 58–97; PULSE 76–87; RESP 18–20
[2019-06-21] MEDS ORDERED: HALOPERIDOL 5 MG INJ IM ONE (00:30)
[2019-06-21] MEDS ORDERED: hydrALAzine 20 MG INJ IV ONE (02:30)
[2019-06-21] MEDS: PANTOPRAZOLE (EC) 40 MG TAB PO SCH (05:25)
[2019-06-21] MEDS: DOCUSATE SODIUM 100 MG CAP PO SCH ×2 (09:30→22:13)
[2019-06-21] MEDS: CEFEPIME 1GM/50 ML (PMX) 50 ML IVPB SCH (09:30)
[2019-06-21] MEDS: FLUCONAZOLE 100 MG TAB PO SCH (09:30)
[2019-06-21] MEDS: PREGABALIN 75 MG CAP PO SCH ×2 (09:30→22:13)
[2019-06-21] MEDS: SEVELAMER CARBONATE 800 MG TABLET PO SCH ×3 (09:30→17:12)
[2019-06-21] MEDS: CELECOXIB 100 MG CAP PO SCH ×2 (09:30→22:13)
[2019-06-21] MEDS: ASPIRIN (EC) 81 MG TAB PO SCH (09:31)
[2019-06-21] MEDS: AMLODIPINE 5 MG TAB PO SCH (09:31)
[2019-06-21] MEDS: LOSARTAN 25 MG TAB PO SCH ×2 (09:31→22:14)
[2019-06-21] MEDS: HEPARIN 5,000 UNIT/1 ML VIAL SC SCH ×2 (09:59→22:24)
[2019-06-21] MEDS: DICLOFENAC SODIUM 1% GEL 100 GM TUBE TP SCH ×4 (09:59→22:15)
[2019-06-21] MEDS: POLYETHYLENE GLYCOL 17 GM PACKET PO SCH (10:00)
[2019-06-21] MEDS: POVIDONE IODINE 10% 28.4 GM OINT TOP SCH (10:00)
[2019-06-21] MEDS: HYDROCODONE/APAP (5/325) TAB PO PRN (13:22)
[2019-06-21] MEDS ORDERED: QUETIAPINE 25 MG TAB PO SCH (21:00)
[2019-06-21] MEDS: NIFEdipine (XL) 60 MG TAB PO SCH (22:13)
[2019-06-21] MEDS: DOXAZOSIN 2 MG TAB PO SCH (22:14)
[2019-06-22] VITALS (16 sets, daily range): BP systolic 105–164; BP diastolic 46–79; PULSE 77–101; RESP 18–20
[2019-06-22] MEDS ORDERED: LORAZEPAM 2 MG INJ IV ONE (02:26)
[2019-06-22] MEDS: PANTOPRAZOLE (EC) 40 MG TAB PO SCH (05:38)
[2019-06-22] MEDS ORDERED: SOD CHLORIDE 0.9% 250 ML IV* ONE (10:05)
[2019-06-22] MEDS: CEFEPIME 1GM/50 ML (PMX) 50 ML IVPB SCH (10:28)
[2019-06-22] MEDS: POLYETHYLENE GLYCOL 17 GM PACKET PO SCH (10:28)
[2019-06-22] MEDS: FLUCONAZOLE 100 MG TAB PO SCH (10:29)
[2019-06-22] MEDS: ASPIRIN (EC) 81 MG TAB PO SCH (10:29)
[2019-06-22] MEDS: CELECOXIB 100 MG CAP PO SCH ×2 (10:29→21:33)
[2019-06-22] MEDS: NIFEdipine (XL) 60 MG TAB PO SCH ×2 (10:29→21:35)
[2019-06-22] MEDS: DOCUSATE SODIUM 100 MG CAP PO SCH ×2 (10:30→21:34)
[2019-06-22] MEDS: LOSARTAN 25 MG TAB PO SCH ×2 (10:31→21:35)
[2019-06-22] MEDS: POVIDONE IODINE 10% 28.4 GM OINT TOP SCH (10:31)
[2019-06-22] MEDS: DICLOFENAC SODIUM 1% GEL 100 GM TUBE TP SCH ×4 (10:32→21:36)
[2019-06-22] MEDS: HEPARIN 5,000 UNIT/1 ML VIAL SC SCH ×2 (10:36→21:46)
[2019-06-22] MEDS: PREGABALIN 75 MG CAP PO SCH (10:46)
[2019-06-22] MEDS: SEVELAMER CARBONATE 800 MG TABLET PO SCH ×3 (10:46→18:22)
[2019-06-22] MEDS: DAPTOMYCIN 230 MG in SOD CHLORIDE 0.9% 100 ML IVPB SCH (18:21)
[2019-06-22] MEDS: DOXAZOSIN 2 MG TAB PO SCH (21:34)
[2019-06-22] MEDS: QUETIAPINE 25 MG TAB PO SCH (21:35)
[2019-06-22] MEDS ORDERED: HALOPERIDOL 5 MG INJ IM ONE (22:00)
[2019-06-23 00:20] VITALS: BP 141/67; PULSE 95; RESP 18
[2019-06-23 04:34] VITALS: BP 149/65; PULSE 90; RESP 18
[2019-06-23] MEDS: PANTOPRAZOLE (EC) 40 MG TAB PO SCH (05:50)
[2019-06-23 07:48] VITALS: BP 124/67; PULSE 88; RESP 19
[2019-06-23] MEDS: POVIDONE IODINE 10% 28.4 GM OINT TOP SCH (09:00)
[2019-06-23] MEDS: POLYETHYLENE GLYCOL 17 GM PACKET PO SCH (10:56)
[2019-06-23] MEDS: DICLOFENAC SODIUM 1% GEL 100 GM TUBE TP SCH ×4 (10:56→20:36)
[2019-06-23] MEDS: CEFEPIME 1GM/50 ML (PMX) 50 ML IVPB SCH (10:56)
[2019-06-23] MEDS: DOCUSATE SODIUM 100 MG CAP PO SCH ×2 (10:57→20:34)
[2019-06-23] MEDS: ASPIRIN (EC) 81 MG TAB PO SCH (10:57)
[2019-06-23] MEDS: LOSARTAN 25 MG TAB PO SCH ×2 (10:58→20:36)
[2019-06-23] MEDS: FLUCONAZOLE 100 MG TAB PO SCH (10:58)
[2019-06-23] MEDS: NIFEdipine (XL) 60 MG TAB PO SCH ×2 (10:58→20:35)
[2019-06-23] MEDS: CELECOXIB 100 MG CAP PO SCH ×2 (10:58→20:47)
[2019-06-23] MEDS: SEVELAMER CARBONATE 800 MG TABLET PO SCH ×3 (10:59→19:10)
[2019-06-23 11:36] VITALS: BP 125/77; PULSE 89; RESP 18
[2019-06-23] MEDS: HEPARIN 5,000 UNIT/1 ML VIAL SC SCH ×2 (11:36→21:00)
[2019-06-23] MEDS: QUETIAPINE 25 MG TAB PO PRN (13:46)
[2019-06-23 15:27] VITALS: BP 109/59; PULSE 80; RESP 18
[2019-06-23] MEDS ORDERED: HALOPERIDOL 5 MG INJ IM ONE (15:30)
[2019-06-23 20:00] VITALS: BP 152/66; PULSE 83; RESP 20
[2019-06-23] MEDS: QUETIAPINE 25 MG TAB PO SCH (20:35)
[2019-06-23] MEDS: DOXAZOSIN 2 MG TAB PO SCH (20:36)
[2019-06-24] VITALS (21 sets, daily range): BP systolic 89–143; BP diastolic 44–60; PULSE 61–86; RESP 16–18
[2019-06-24] MEDS: PANTOPRAZOLE (EC) 40 MG TAB PO SCH (05:55)
[2019-06-24] MEDS: LOSARTAN 25 MG TAB PO SCH ×2 (09:00→20:25)
[2019-06-24] MEDS: POLYETHYLENE GLYCOL 17 GM PACKET PO SCH (09:05)
[2019-06-24] MEDS: SEVELAMER CARBONATE 800 MG TABLET PO SCH ×3 (09:05→17:19)
[2019-06-24] MEDS: DOCUSATE SODIUM 100 MG CAP PO SCH ×2 (09:05→20:24)
[2019-06-24] MEDS: CELECOXIB 100 MG CAP PO SCH ×2 (09:06→20:25)
[2019-06-24] MEDS: CEFEPIME 1GM/50 ML (PMX) 50 ML IVPB SCH (09:06)
[2019-06-24] MEDS: FLUCONAZOLE 100 MG TAB PO SCH (09:07)
[2019-06-24] MEDS: ASPIRIN (EC) 81 MG TAB PO SCH (09:07)
[2019-06-24] MEDS: NIFEdipine (XL) 60 MG TAB PO SCH ×2 (09:08→20:24)
[2019-06-24] MEDS: DICLOFENAC SODIUM 1% GEL 100 GM TUBE TP SCH ×4 (09:09→21:15)
[2019-06-24] MEDS: HEPARIN 5,000 UNIT/1 ML VIAL SC SCH ×2 (09:11→20:35)
[2019-06-24] MEDS: POVIDONE IODINE 10% 28.4 GM OINT TOP SCH (09:16)
[2019-06-24] MEDS: HYDROCODONE/APAP (5/325) TAB PO PRN (10:23)
[2019-06-24] MEDS ORDERED: LORAZEPAM 2 MG INJ IV ONE ×2 (13:30→19:00)
[2019-06-24] MEDS: DAPTOMYCIN 230 MG in SOD CHLORIDE 0.9% 100 ML IVPB SCH (13:41)
[2019-06-24] MEDS: ALBUMIN HUMAN 25% 100 ML IV PRN (18:06)
[2019-06-24] MEDS: QUETIAPINE 25 MG TAB PO PRN (18:08)
[2019-06-24] MEDS: DOXAZOSIN 2 MG TAB PO SCH (20:24)
[2019-06-24] MEDS: QUETIAPINE 25 MG TAB PO SCH (20:26)
[2019-06-25 04:00] VITALS: BP 145/62; PULSE 75; RESP 18
[2019-06-25] MEDS: QUETIAPINE 25 MG TAB PO PRN (04:51)
[2019-06-25] MEDS: PANTOPRAZOLE (EC) 40 MG TAB PO SCH (05:54)
[2019-06-25 07:39] VITALS: BP 130/62; PULSE 82; RESP 17
[2019-06-25] MEDS: SEVELAMER CARBONATE 800 MG TABLET PO SCH ×3 (08:06→17:46)
[2019-06-25] MEDS: CEFEPIME 1GM/50 ML (PMX) 50 ML IVPB SCH (08:45)
[2019-06-25] MEDS: DOCUSATE SODIUM 100 MG CAP PO SCH ×2 (08:48→21:00)
[2019-06-25] MEDS: FLUCONAZOLE 100 MG TAB PO SCH (08:48)
[2019-06-25] MEDS: CELECOXIB 100 MG CAP PO SCH ×2 (08:48→21:00)
[2019-06-25] MEDS: POLYETHYLENE GLYCOL 17 GM PACKET PO SCH (08:48)
[2019-06-25] MEDS: ASPIRIN (EC) 81 MG TAB PO SCH (08:49)
[2019-06-25] MEDS: HEPARIN 5,000 UNIT/1 ML VIAL SC SCH ×2 (08:50→20:56)
[2019-06-25] MEDS: NIFEdipine (XL) 60 MG TAB PO SCH ×2 (08:51→21:00)
[2019-06-25] MEDS: LOSARTAN 25 MG TAB PO SCH ×2 (08:51→21:00)
[2019-06-25] MEDS: DICLOFENAC SODIUM 1% GEL 100 GM TUBE TP SCH ×4 (08:53→20:53)
[2019-06-25] MEDS: POVIDONE IODINE 10% 28.4 GM OINT TOP SCH (09:00)
[2019-06-25 11:52] VITALS: BP 123/58; PULSE 79; RESP 18
[2019-06-25 15:22] VITALS: BP 120/58; PULSE 81; RESP 17
[2019-06-25] MEDS ORDERED: LORAZEPAM 2 MG INJ IV ONE (15:30)
[2019-06-25 19:31] VITALS: BP 127/58; PULSE 77; RESP 20
[2019-06-25] MEDS: QUETIAPINE 25 MG TAB PO SCH (21:00)
[2019-06-25] MEDS: DOXAZOSIN 2 MG TAB PO SCH (21:00)
[2019-06-25 23:58] VITALS: BP 128/61; PULSE 82; RESP 20
[2019-06-26 04:21] VITALS: BP 139/63; PULSE 81; RESP 20
[2019-06-26] MEDS: PANTOPRAZOLE (EC) 40 MG TAB PO SCH (05:14)
[2019-06-26 07:27] VITALS: BP 159/70; PULSE 91; RESP 20
[2019-06-26] MEDS: POLYETHYLENE GLYCOL 17 GM PACKET PO SCH (08:15)
[2019-06-26] MEDS: CEFEPIME 1GM/50 ML (PMX) 50 ML IVPB SCH (08:15)
[2019-06-26] MEDS: CELECOXIB 100 MG CAP PO SCH ×2 (08:16→21:18)
[2019-06-26] MEDS: SEVELAMER CARBONATE 800 MG TABLET PO SCH ×3 (08:16→17:24)
[2019-06-26] MEDS: ASPIRIN (EC) 81 MG TAB PO SCH (08:16)
[2019-06-26] MEDS: FLUCONAZOLE 100 MG TAB PO SCH (08:16)
[2019-06-26] MEDS: LOSARTAN 25 MG TAB PO SCH ×2 (08:18→21:20)
[2019-06-26] MEDS: DOCUSATE SODIUM 100 MG CAP PO SCH ×2 (08:19→21:00)
[2019-06-26] MEDS: NIFEdipine (XL) 60 MG TAB PO SCH ×2 (08:19→21:19)
[2019-06-26] MEDS: DICLOFENAC SODIUM 1% GEL 100 GM TUBE TP SCH ×4 (08:20→21:23)
[2019-06-26] MEDS: POVIDONE IODINE 10% 28.4 GM OINT TOP SCH (09:00)
[2019-06-26] MEDS: HEPARIN 5,000 UNIT/1 ML VIAL SC SCH ×2 (09:42→21:58)
[2019-06-26 11:49] VITALS: BP 112/56; PULSE 75; RESP 18
[2019-06-26] MEDS: DAPTOMYCIN 230 MG in SOD CHLORIDE 0.9% 100 ML IVPB SCH (14:17)
[2019-06-26 15:44] VITALS: BP 131/64; PULSE 72; RESP 20
[2019-06-26 19:25] VITALS: BP 134/67; PULSE 76; RESP 18
[2019-06-26] MEDS: DOXAZOSIN 2 MG TAB PO SCH (21:18)
[2019-06-26] MEDS: QUETIAPINE 25 MG TAB PO SCH (21:19)
[2019-06-27] VITALS (21 sets, daily range): BP systolic 103–161; BP diastolic 49–91; PULSE 64–80; RESP 17–20
[2019-06-27] MEDS: PANTOPRAZOLE (EC) 40 MG TAB PO SCH (06:10)
[2019-06-27] MEDS: ASPIRIN (EC) 81 MG TAB PO SCH (08:35)
[2019-06-27] MEDS: CEFEPIME 1GM/50 ML (PMX) 50 ML IVPB SCH (08:35)
[2019-06-27] MEDS: CELECOXIB 100 MG CAP PO SCH ×2 (08:35→21:21)
[2019-06-27] MEDS: DOCUSATE SODIUM 100 MG CAP PO SCH ×2 (08:35→21:21)
[2019-06-27] MEDS: FLUCONAZOLE 100 MG TAB PO SCH (08:35)
[2019-06-27] MEDS: SEVELAMER CARBONATE 800 MG TABLET PO SCH ×3 (08:36→16:48)
[2019-06-27] MEDS: DICLOFENAC SODIUM 1% GEL 100 GM TUBE TP SCH ×4 (08:41→21:23)
[2019-06-27] MEDS: POLYETHYLENE GLYCOL 17 GM PACKET PO SCH (09:00)
[2019-06-27] MEDS: POVIDONE IODINE 10% 28.4 GM OINT TOP SCH (09:00)
[2019-06-27] MEDS: NIFEdipine (XL) 60 MG TAB PO SCH ×2 (09:00→21:21)
[2019-06-27] MEDS: LOSARTAN 25 MG TAB PO SCH ×2 (09:00→21:22)
[2019-06-27] MEDS: HYDROCODONE/APAP (5/325) TAB PO PRN ×2 (09:42→19:02)
[2019-06-27] MEDS: LIDOCAINE 1% (MDV) 20 ML INJ INJ PRN (13:07)
[2019-06-27] MEDS: HEPARIN 5,000 UNIT/1 ML VIAL SC SCH ×2 (14:15→21:53)
[2019-06-27] MEDS: QUETIAPINE 25 MG TAB PO SCH (21:22)
[2019-06-27] MEDS: DOXAZOSIN 2 MG TAB PO SCH (21:23)
[2019-06-28 04:10] VITALS: BP 127/60; PULSE 68; RESP 16
[2019-06-28] MEDS: PANTOPRAZOLE (EC) 40 MG TAB PO SCH (05:54)
[2019-06-28] MEDS: HYDROCODONE/APAP (5/325) TAB PO PRN ×2 (06:01→12:45)
[2019-06-28 07:12] VITALS: BP 177/78; PULSE 62; RESP 20
[2019-06-28] MEDS: SEVELAMER CARBONATE 800 MG TABLET PO SCH ×2 (09:12→12:28)
[2019-06-28] MEDS: CELECOXIB 100 MG CAP PO SCH (09:13)
[2019-06-28] MEDS: LOSARTAN 25 MG TAB PO SCH (09:14)
[2019-06-28] MEDS: DOCUSATE SODIUM 100 MG CAP PO SCH (09:14)
[2019-06-28] MEDS: FLUCONAZOLE 100 MG TAB PO SCH (09:14)
[2019-06-28] MEDS: ASPIRIN (EC) 81 MG TAB PO SCH (09:14)
[2019-06-28] MEDS: POLYETHYLENE GLYCOL 17 GM PACKET PO SCH (09:14)
[2019-06-28] MEDS: NIFEdipine (XL) 60 MG TAB PO SCH (09:15)
[2019-06-28] MEDS: CEFEPIME 1GM/50 ML (PMX) 50 ML IVPB SCH (09:21)
[2019-06-28] MEDS: HEPARIN 5,000 UNIT/1 ML VIAL SC SCH (09:27)
[2019-06-28] MEDS: DICLOFENAC SODIUM 1% GEL 100 GM TUBE TP SCH ×2 (09:51→13:45)
[2019-06-28] MEDS: POVIDONE IODINE 10% 28.4 GM OINT TOP SCH (09:52)
[2019-06-28 12:12] VITALS: BP 125/61; PULSE 63; RESP 19
[2019-06-28] MEDS ORDERED: DAPTOMYCIN 350 MG in SOD CHLORIDE 0.9% 100 ML IVPB SCH (14:00)
[2019-06-28 15:33] VITALS: BP 140/63; PULSE 70; RESP 20
== END 2019-06-28 16:40 | DRG 477 ==
LOC: TEL 20:59 → 2NE 05-30 18:59 → 6WM 06-15 16:40 → TEL 06-25 01:25
PROVIDERS: ADMIT Internal Medicine; ATTEND Family Medicine
PROC: 5A1D70Z Performance of Urinary Filtration, Intermittent, Less than 6 Hours Per Day (ICD-10-PCS; 2019-05-28)
PROC: 0QB03ZX Excision of Lumbar Vertebra, Percutaneous Approach, Diagnostic (ICD-10-PCS; 2019-05-31)
PROC: 05PY03Z Removal of Infusion Device from Upper Vein, Open Approach (ICD-10-PCS; 2019-06-01)
PROC: 0JPT3XZ Removal of Tunneled Vascular Access Device from Trunk Subcutaneous Tissue and Fascia, Percutaneous Approach (ICD-10-PCS; 2019-06-01)
PROC: 30233K1 Transfusion of Nonautologous Frozen Plasma into Peripheral Vein, Percutaneous Approach (ICD-10-PCS; 2019-06-08)
PROC: 0SB20ZZ Excision of Lumbar Vertebral Disc, Open Approach (ICD-10-PCS; principal; 2019-06-09)
PROC: 01NB0ZZ Release Lumbar Nerve, Open Approach (ICD-10-PCS; 2019-06-09)
PROC: 00NY0ZZ Release Lumbar Spinal Cord, Open Approach (ICD-10-PCS; 2019-06-09)
PROC: 0QB00ZZ Excision of Lumbar Vertebra, Open Approach (ICD-10-PCS; 2019-06-09)
PROC: 0MBD0ZZ Excision of Lower Spine Bursa and Ligament, Open Approach (ICD-10-PCS; 2019-06-09)
PROC: 4A11X4G Monitoring of Peripheral Nervous Electrical Activity, Intraoperative, External Approach (ICD-10-PCS; 2019-06-09)
PROC: 02HV33Z Insertion of Infusion Device into Superior Vena Cava, Percutaneous Approach (ICD-10-PCS; 2019-06-12)
PROC: 30233N1 Transfusion of Nonautologous Red Blood Cells into Peripheral Vein, Percutaneous Approach (ICD-10-PCS; 2019-06-22)
DX: M46.46 Discitis, unspecified, lumbar region (principal); N18.6 End stage renal disease; G92 Toxic encephalopathy; G06.2 Extradural and subdural abscess, unspecified; I12.0 Hypertensive chronic kidney disease with stage 5 chronic kidney disease or end stage renal disease; M46.26 Osteomyelitis of vertebra, lumbar region; D68.4 Acquired coagulation factor deficiency; M46.47 Discitis, unspecified, lumbosacral region; D63.1 Anemia in chronic kidney disease; E87.5 Hyperkalemia; E78.5 Hyperlipidemia, unspecified; H49.21 Sixth [abducent] nerve palsy, right eye; H55.89 Other irregular eye movements; K21.9 Gastro-esophageal reflux disease without esophagitis; K80.20 Calculus of gallbladder without cholecystitis without obstruction; K76.9 Liver disease, unspecified; M89.8X8 Other specified disorders of bone, other site; M48.061 Spinal stenosis, lumbar region without neurogenic claudication; R53.81 Other malaise; R29.6 Repeated falls; Z99.2 Dependence on renal dialysis
CPT/HCPCS: 36430; 36569; 36589; 70450; 70551; 71045; 72114; 72131; 72146; 72148; 72149; 72196; 73510; 73520; 76700; 76937; 77012; 80048; 80053; 80061; 80202; 81001; 82140; 82550; 83036; 83540; 83735; 84100; 84145; 84153; 84154; 84484; 85025; 85049; 85610; 85651; 85670; 85730; 86140; 86704; 86709; 86803; 86850; 86900; 86901; 86920; 87070; 87075; 87081; 87086; 87102; 87116; 87340; 88300; 88304; 88305; 88313; 90935; 93005; 93306; 97110; 97116; 97162; 97164; 97530; A4310; C1769; J0360; J0692; J0696; J1100; J1170; J1335; J1630; J1644; J2060; J2185; J2270; J2405; J2543; J2916; J3010; J3370; J7040; P9016; P9047; P9059; Q9967